=== PATIENT | female | born 1950 ===

== ENCOUNTER 2017-05-02 06:50 | Day surgery (SDC) | payer OTHER | END 2017-05-02 11:25 | disposition home or self-care (01) | LOC: AMB-ENDOS 06:50 | DX: D12.3 Benign neoplasm of transverse colon (principal); K57.30 Diverticulosis of large intestine without perforation or abscess without bleeding ==

== ENCOUNTER 2019-12-24 10:28 | Day surgery (SDC) | payer OTHER | END 2019-12-24 15:35 | disposition home or self-care (01) | LOC: AMB-ENDOS 10:28 | PROVIDERS: ATTEND Surgery | DX: K62.82 Dysplasia of anus (principal); D12.4 Benign neoplasm of descending colon; K64.8 Other hemorrhoids ==